=== PATIENT | male | born 1995 | race Caucasian/White ===

== ENCOUNTER 2025-04-09 13:19 | Emergency (ER) | payer MEDICAID ==
[~2025-04-09] VITALS: Ht 172.7 cm; Wt 71.8 kg
[2025-04-09 13:28] VITALS: BP 122/76; PULSE 96; RESP 18; O2SAT 98
[2025-04-09] MEDS ORDERED: terbinafine cream 30gm TP SCH (14:00)
--- NOTE | 2025-04-09 14:06 | Physician Documentation ---
History of Present Illness ~ Chief Complaint: Rash Stated Complaint: FACE INFECTION Time Seen by MD: 13:44 HPI 29-year-old male presents to the ED for an ongoing facial rash. States he has been taking mupirocin for as prescribed and the rash has not gotten better. He denies any exposure to animals. Does say that he has been to the gym a lot lately. Review of Systems All Other Systems at this time: Reviewed and Negative ROS As stated above in the HPI, otherwise all systems are reviewed and negative. Physical Exam Vital Signs: Temperature: 97.6, Source: Temporal, Heart Rate: 96, Respiratory Rate: 18, BP: 122/76, Pulse Oximetry: 98, Weight: 71.800 Physical Exam General: Alert, no apparent distress. Neurologic: Oriented x4. Psychiatric: Normal mood and affect. Skin: Left cheek a circular lesion with pustular a presentation on the outer ring Progress Results/Orders Results/Orders Orders - ATUL DAVE NP Terbinafine Cream (Lamisil Cream) (04/09/25 14:00) Vital Signs 04/09/25 13:28 Temp 97.6 Pulse 96 Resp 18 B/P (MAP) 122/76 Pulse Ox 98 Medical Decision Making Findings treating this patient empirically for ringworm. Differential Dx:Considerations: Include: Abscess, AIDS/HIV, Anthrax (cutaneous), Atopic dermatitis, Candidiasis, Contact dermatitis, Drug reaction, Erythema multiforme, Erysipelas, Gangrene, Herpes zoster, Herpes simplex, Hidradenitis suppurativa, Impetigo, Intertrigo, Lymes disease, Molluscum contagiosum, Osteomyelitis, Pediculosis, Pityriasis rosea, Psoriaisis, RMSF, Rosacea, Scabies, Scarlet fever, Tinea, Urticaria, Varicella, Viral exanthema, Other Departure Disposition: 01 HOME / SELF CARE / HOMELESS Impression: Primary Impression: Ringworm of body Condition: Stable Discharge Instructions: Body Ringworm Referrals: NO PRIMARY CARE PROVIDER (PCP) Prescriptions Butenafine HCl (Lotrimin Ultra) 1 % Cream..g. 1 APPLIC TOP Q12H for 14 Days, #30 GM 0 Refills Prov: ATUL DAVE NP 04/09/25 Education Educated: Patient Educated regarding: diagnosis Signature Scribe Signature: gf Attestation: Scribed for Atul Dave Np by Atul Last NP . 04/09/25 14:04 ATUL DAVE NP Apr 09, 2025 14:05
[2025-04-09] MEDS ORDERED: BUTE12CR TOP (14:25)
[2025-04-09 14:44] VITALS: TEMP 97.6
== END 2025-04-09 14:45 | disposition home or self-care (01) ==
LOC: ER 13:20
DX: B35.4 Tinea corporis (principal)
CPT/HCPCS: 99282